=== PATIENT | female | born 1975 | race Caucasian/White ===

== ENCOUNTER 2018-03-10 06:36 | Emergency (ER) | payer OTHER ==
[~2018-03-10] VITALS: Ht 160 cm; Wt 85.7 kg
[~2018-03-10 06:36] MED LIST: ACEDIPPM; CARB200; LITH300CA; LORA1 PO; QUET25; RISP2; SERT25
[2018-03-10] MEDS ORDERED: ALLEGRA ALLERG180 MG PO (06:51)
== END 2018-03-10 08:12 | disposition home or self-care (01) ==
LOC: ER 06:36
DX: J06.9 Acute upper respiratory infection, unspecified (principal); Z87.891 Personal history of nicotine dependence
CPT/HCPCS: 71046; 87081; 87430; 99283

== ENCOUNTER 2018-03-13 03:21 | Observation (INO) | payer OTHER ==
[~2018-03-13] VITALS: Ht 160 cm; Wt 90.7 kg
[~2018-03-13 03:21] MED LIST changes: +ALLEGRA ALLERG180 MG PO
[2018-03-13 04:48] LABS: BASOPHILS ABSOLUTE AUTO 0.03 K/mm3 (0.00-0.23); BASOPHILS PERCENT AUTO 0 % (0-2); EOSINOPHILS PERCENT AUTO 1 % (0-6); Hematocrit 42.6 % (33.0-51.0); Hemoglobin 14.6 g/dL (11.5-16.0); IMMATURE GRAN ABSOLUTE AUTO 0.03 K/mm3 (0.00-0.10); IMMATURE GRAN PERCENT AUTO 0 % (0-1); LYMPHOCYTES ABSOLUTE AUTO 1.31 K/mm3 (0.84-5.20); LYMPHOCYTES PERCENT AUTO 13 % (21-46); MONOCYTES PERCENT AUTO 6 % (4-13); Mean Corpuscular HGB 33.9 pg (26.0-34.0); Mean Corpuscular HGB Conc 34.3 g/dL (31.5-36.5); Mean Corpuscular Volume 99 fL (80-100); NEUTROPHILS PERCENT AUTO 80 % (41-73); Platelet Count 298 K/mm3 (150-400); RDW Coefficient Variation 14.3 % (11.7-14.2); RDW Standard Deviation 52.1 fL (35.1-46.3); Red Blood Cell Count 4.31 M/mm3 (3.80-5.20); White Blood Cell Count 10.27 K/mm3 (4.00-11.30)
[2018-03-13 05:11] LABS: Alanine Aminotransfer (ALT/SGP 49 U/L (12-78); Albumin, Blood 3.9 g/dL (3.4-5.0); Albumin/Globulin Ratio 1.1 (0.8-1.8); Alk Phos 86 U/L (50-136); Anion Gap 8 mmol/L (6-16); Aspartate Aminotrans (AST/SGOT 26 U/L (12-37); Bilirubin, Total 0.5 mg/dL (0.1-1.0); Blood Urea Nitrogen 6 mg/dL (8-24); Bun/Creatinine Ratio 7.8 (12.0-20.0); CO2, Blood 22 mmol/L (21-32); Calcium, Blood 8.6 mg/dL (8.5-10.1); Chloride, Blood 112 mmol/L (98-108); Creatinine, Blood 0.77 mg/dL (0.40-1.00); Globulin, Blood 3.6 g/dL (2.2-4.0); Glomerular Filtration Rate >60 (60-); Glucose, Blood 138 mg/dL (70-99); Potassium, Blood 3.1 mmol/L (3.5-5.5); Sodium, Blood 142 mmol/L (136-145); Total Protein, Blood 7.5 g/dL (6.4-8.2)
[2018-03-13 05:14] LABS: Thyroid Stimulating Hormone 0.871 uIU/mL (0.360-4.800)
[2018-03-13 07:40] LABS: Source, Urine Clean Catch
[2018-03-13 07:43] LABS: Bilirubin, Urine Neg (Neg); Blood, Urine 1+ (Neg); Glucose Qualitative, Urine Neg (Neg); Ketones, Urine Neg (Neg); Leukocyte Esterase, Urine 3+ (Neg); Nitrite, Urine Neg (Neg); Protein, Urine Neg (Neg); Specific Gravity, Urine 1.005 (1.003-1.022); Urobilinogen, Urine NORM (Normal); pH, Urine 6.5 (5.0-8.0)
[2018-03-13 07:49] LABS: Appearance, Urine Hazy (Clear); Color, Urine Yellow (P-Yellow)
[2018-03-13 07:57] LABS: Squamous Epithelial Cells Mod /hpf (Few); White Blood Cells, Urine 25-50 /hpf (0-5)
[2018-03-13 07:58] LABS: Bacteria Mod /hpf; Yeast/Fungi Urine Mod /hpf
[2018-03-13 08:02] LABS: U Amphetamine Screen Not Detected; U Barbituate Screen Not Detected; U Benzodiazapine Screen Not Detected; U Buprenorphine Screen Not Detected; U Cannabinoids Screen DETECTED; U Cocaine Screen Not Detected; U Methadone Screen Not Detected; U Methamphetamine Screen Not Detected; U Opiates Screen Not Detected; U Oxycodone Screen Not Detected; U Phencyclidine Screen Not Detected; U Propoxyphene Screen Not Detected
[2018-03-14 15:24] LABS: Salicylate 3.4 mg/dL (2.8-20.0)
[2018-03-14 15:31] LABS: Acetaminophen, Random <2.0 ug/mL (10.0-30.0)
== END 2018-03-14 21:47 ==
LOC: ER 03:21 → EOR 18:27
PROVIDERS: Emergency Medicine
DX: F30.9 Manic episode, unspecified (principal); G47.00 Insomnia, unspecified; R44.0 Auditory hallucinations; Z87.891 Personal history of nicotine dependence; Z79.899 Other long term (current) drug therapy
CPT/HCPCS: 70450; 80053; 81001; 81025; 84443; 85025; 87086; 93005; 93010; 96374; 99285; G0378; G0480; J1200